=== PATIENT | female | born 1955 | race African-American/Black ===

== ENCOUNTER 2024-04-07 10:42 | Emergency (ER) | payer OTHER ==
[~2024-04-07] VITALS: Ht 170.2 cm; Wt 90.0 kg
[2024-04-07 10:44] VITALS: BP 0/0; PULSE 0; RESP 0; O2SAT 94
== END 2024-04-07 11:09 ==
LOC: ER 10:49
DX: I46.9 Cardiac arrest, cause unspecified (principal); J96.01 Acute respiratory failure with hypoxia; E11.9 Type 2 diabetes mellitus without complications; I10 Essential (primary) hypertension
CPT/HCPCS: 31500; 82962; 99291